=== PATIENT | male | born 1990 | race Caucasian/White ===

== ENCOUNTER → 2016-11-06 | Outpatient (CLI) | payer OTHER ==
--- NOTE | 2016-11-06 17:20 | REP ---
LEFT WRIST: Four views of the left wrist were performed. There is a comminuted fracture of the mid to distal scaphoid bone. There is mild distraction of fracture fragments. A small fracture is mildly displaced laterally. I see no other evidence of acute fracture or dislocation. IMPRESSION: Comminuted fracture of scaphoid bone. Signed by Stefan Boston MD 11/07/2016 01:23 P
== END ==
LOC: M WUC 16:56
PROVIDERS: ATTEND Physician Assistant
DX: S62.012A Displaced fracture of distal pole of navicular [scaphoid] bone of left wrist, initial encounter for closed fracture (principal); X58.XXXA Exposure to other specified factors, initial encounter; Y92.9 Unspecified place or not applicable; Y93.9 Activity, unspecified; Y99.9 Unspecified external cause status

== ENCOUNTER → 2016-11-25 | Outpatient (CLI) | payer BC ==
--- NOTE | 2016-11-25 18:06 | REP ---
CT of the wrist: Axial images are acquired helical scanning in the reformatted sagittal coronal projections. There is a comminuted scaphoid ossicle fracture. The two major fracture fragments are by an oblique fracture line and the margins of the fracture are smooth with and there is no adjacent soft tissue edema suggesting this may be an old injury. The third fracture fragment is the smallest fragment and is distal to the radial styloid process. The margins of this fracture fragment are more sharply defined, therefore, this may represent a more recent injury. Correlation with clinical history is recommended. There is no dislocation. Signed by Stefan Camara MD 11/25/2016 05:57 P
== END ==
LOC: M RAD 17:32
PROVIDERS: ATTEND Orthopaedic Surgery
DX: S62.012A Displaced fracture of distal pole of navicular [scaphoid] bone of left wrist, initial encounter for closed fracture (principal); Y92.9 Unspecified place or not applicable; Y93.9 Activity, unspecified; Y99.8 Other external cause status; X58.XXXA Exposure to other specified factors, initial encounter